=== PATIENT | male | born 2000 | race Two or more races ===

== ENCOUNTER 2019-06-14 12:55 | Emergency (ER) | payer OTHER, MEDICAID ==
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
== END 2019-06-14 14:05 ==
LOC: JP.ED 12:55
CPT/HCPCS: 99283

== ENCOUNTER 2021-01-26 00:48 | Emergency (ER) | payer BC, MEDICAID ==
[2021-01-26 01:08] VITALS: BP 146/81; PULSE 104
[2021-01-26] MEDS ORDERED: Ketorolac 30 MG/ML SDV IM ONE (01:25)
--- NOTE | 2021-01-26 01:29 | EDM.PDOC ---
ED HPI GENERAL MEDICAL PROBLEM - General Chief Complaint: General Stated Complaint: FELL HITTING FACE Time Seen by Provider: 01/26/21 01:17 Source of Information: Reports: Patient, Family, RN Notes Reviewed History Limitations: Reports: No Limitations - History of Present Illness INITIAL COMMENTS - FREE TEXT/NARRATIVE: 20-year-old gentleman presents emergency department today with bruising to the left side of his face he injured himself he states while he was running and try to go up the stairs he slipped and fell and hit with he is describing is a step predominantly on the cheekbone left side he does have significant bruising on the left side of the face as well as the eye describes no other pain no loss of consciousness no nausea or vomiting no other injury Left Face/Facial Pain Score (Numeric/FACES): 4 - Related Data Allergies Allergy/AdvReac Type Severity Reaction Status Date / Time No Known Allergies Allergy Verified 01/26/21 01:05 Home Meds: Home Meds Albuterol Sulfate [Albuterol Sulfate HFA] 2 puff INH Q4H PRN 02/06/13 [History] Montelukast [Singulair] 10 mg PO DAILY 02/06/13 [History] Past Medical History HEENT History: Reports: Allergic Rhinitis Respiratory History: Reports: Asthma Musculoskeletal History: Reports: Fracture Neurological History: Reports: Concussion - Infectious Disease History Infectious Disease History: Reports: RSV Social & Family History - Tobacco Use Tobacco Use Status *Q: Current Every Day Tobacco User Years of Tobacco use: 1 Packs/Tins Daily: 0.2 - Caffeine Use Caffeine Use: Reports: Soda Caffeine Use Comment: occassional use - Recreational Drug Use Recreational Drug Use: No ED ROS GENERAL - Review of Systems Review Of Systems: See Below Constitutional: Reports: No Symptoms HEENT: Reports: Other (Facial bruising) Respiratory: Reports: No Symptoms Cardiovascular: Reports: No Symptoms GI/Abdominal: Reports: No Symptoms ED EXAM, GENERAL - Physical Exam Exam: See Below Free Text/Narrative:: GCS of 15 airways open patent and clear lungs are clear to auscultation bilaterally cardiovascular demonstrates regular rate and rhythm S1-S2 Exam Limited By: No Limitations General Appearance: Alert, WD/WN, No Apparent Distress Eye Exam: Right Eye: Normal Inspection, Left Eye: Other (Subconjunctival hemorrhage), Bilateral Eye: EOMI, PERRL Ears: Normal External Exam, Normal Canal, Hearing Grossly Normal, Normal TMs Nose: Normal Inspection, Normal Mucosa, No Blood Throat/Mouth: Normal Inspection, Normal Lips, Normal Teeth, Normal Gums, Normal Oropharynx, Normal Voice, No Airway Compromise, Other (Laceration is appreciated inside the mucosal lining upper lip superficial) Head: Normocephalic, Facial Swelling, Facial Tenderness (Left cheekbone), Other (Superficial laceration is appreciated underneath the left eye) Neck: Normal Inspection, Supple, Non-Tender, Full Range of Motion Respiratory/Chest: No Respiratory Distress, Lungs Clear, Normal Breath Sounds, No Accessory Muscle Use, Chest Non-Tender Cardiovascular: Regular Rate, Rhythm, No Murmur Course - Vital Signs Last Recorded V/S: Last Vital Signs Temp 98.2 F 01/26/21 01:08 Pulse 104 H 01/26/21 01:08 Resp 16 01/26/21 01:08 BP 146/81 H 01/26/21 01:08 Pulse Ox 97 01/26/21 01:08 - Orders/Labs/Meds Meds: Medications Discontinued Medications Generic Name Dose Route Start Last Admin Trade Name Michael PRN Reason Stop Dose Admin Ketorolac Tromethamine 30 mg 01/26/21 01:25 01/26/21 01:31 Ketorolac 30 Mg/Ml Sdv IM 01/26/21 01:26 30 mg ONETIME ONE Administration Departure - Departure Time of Disposition: 03:03 Disposition: Home, Self-Care 01 Condition: Fair Clinical Impression: Ethmoid fracture Qualifiers: Encounter type: initial encounter Fracture type: closed Laterality: left Qualified Code(s): S02.19XA - Other fracture of base of skull, initial encounter for closed fracture - Discharge Information Instructions: Head Injury, Adult, [id number] Referrals: PCP,None [Primary Care Provider] - Forms: ED Department Discharge Additional Instructions: Continue to use ice to help reduce the swelling, try not to blow your nose or have any forceful movements such as sneezing if possible, use Toradol as needed for pain control. Please call to the [facility] clinic in the morning for an appointment time with Dr. Dooley from ear nose and throat for follow-up. Also recommend eye exam by your eye care provider within the next week. Call return to the emergency department worsening of symptoms Sepsis Event Note (ED) - Evaluation Sepsis Screening Result: No Definite Risk - Focused Exam Vital Signs: Vital Signs Temp Pulse Resp BP Pulse Ox 01/26/21 01:08 98.2 F 104 H 16 146/81 H 97 01/26/21 01:07 98.2 F 104 H 16 146/81 H 97 - Assessment/Plan Plan: Assessment Acuity = acute Site and laterality = left ethmoid bone fracture (lamina papyracea Etiology = trauma Manifestations = none Location of injury = Home Lab values = CT scan describes fracture above Plan Good relief with Toradol provided in the emergency department call discussed case with Dr. Arias ear nose [facility] on-call at [facility] recommend follow-up with ENT in 1 week a consultation has been set up also recommend evaluation by ophthalmic provider This note was dictated using [employer] voice recognition software please call with any questions on syntax or grammar.
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
== END 2021-01-26 03:12 | disposition home or self-care (01) ==
LOC: JP.ED 00:48
DX: S02.19XA Other fracture of base of skull, initial encounter for closed fracture (principal); S01.511A Laceration without foreign body of lip, initial encounter; J45.909 Unspecified asthma, uncomplicated; Z72.0 Tobacco use; W01.198A Fall on same level from slipping, tripping and stumbling with subsequent striking against other object, initial encounter; Y93.02 Activity, running
CPT/HCPCS: 70450; 70486; 96372; 99283; J1885

== ENCOUNTER 2021-10-09 15:19 | Emergency (ER) | payer MEDICAID ==
[2021-10-09 15:31] VITALS: BP 150/84; PULSE 94
[2021-10-09 17:14] LABS: CORONAVIRUS COVID-19 NAA NEGATIVE (NEGATIVE)
== END 2021-10-09 18:10 | disposition home or self-care (01) ==
LOC: JP.ED 15:19
DX: B34.9 Viral infection, unspecified (principal); J45.909 Unspecified asthma, uncomplicated; F17.210 Nicotine dependence, cigarettes, uncomplicated; Z79.899 Other long term (current) drug therapy; Z20.822 Contact with and (suspected) exposure to COVID-19
CPT/HCPCS: 0241U; 36415; 85025; 87081; 87880; 99281; 99283

== ENCOUNTER 2023-05-10 23:11 | Emergency (ER) | payer MEDICAID ==
[2023-05-10 23:21] VITALS: BP 143/93; PULSE 55
== END 2023-05-11 | disposition home or self-care (01) ==
LOC: JP.ED 23:11
DX: K04.7 Periapical abscess without sinus (principal); K02.9 Dental caries, unspecified; J45.909 Unspecified asthma, uncomplicated; F17.210 Nicotine dependence, cigarettes, uncomplicated; Z79.899 Other long term (current) drug therapy
CPT/HCPCS: 99282

== ENCOUNTER 2023-06-07 21:29 | Emergency (ER) | payer MEDICAID ==
[2023-06-07 22:07] VITALS: BP 136/56; PULSE 92
[2023-06-07 23:28] LABS: BASOPHILS ABSOLUTE AUTO 0.06 K/uL (0.00-0.10); BASOPHILS PERCENT AUTO 0.6 % (0.1-1.3); EOSINOPHILS ABSOLUTE AUTO 0.32 K/uL (0.00-0.40); EOSINOPHILS PERCENT AUTO 3.4 % (0.0-5.4); HEMATOCRIT 38.6 % (38.4-49.7); HEMOGLOBIN 12.9 g/dL (12.9-16.9); IMMATURE GRAN ABSOLUTE AUTO 0.12 K/uL (0.00-0.23); IMMATURE GRAN PERCENT AUTO 1.3 % (0.0-0.7); LYMPHOCYTES ABSOLUTE AUTO 2.74 K/uL (0.8-3.3); MEAN CORPUSCULAR HEMOGLOBIN 27.7 pg (31.6-35.5); MEAN CORPUSCULAR HGB CONC 33.4 g/dL (31.6-35.5); MONOCYTES ABSOLUTE AUTO 1.02 K/uL (0.20-0.90); MONOCYTES PERCENT AUTO 10.8 % (3.3-12.6); NEUTROPHILS ABSOLUTE AUTO 5.18 K/uL (1.0-7.6); NEUTROPHILS PERCENT AUTO 54.9 % (40.0-78.1); PLATELET COUNT,PLT 227 K/uL (130-375); RED BLOOD CELL COUNT 4.65 M/uL (4.14-5.76); WHITE BLOOD CELL COUNT,WBC 9.4 K/uL (3.2-11.0)
[2023-06-07 23:50] LABS: A/G RATIO 1.1 (1.2-2.2); ALANINE AMINOTRANSFERASE,ALT 102 U/L (12-78); ALBUMIN 3.5 g/dL (3.4-5.0); ALKALINE PHOSPHATASE 60 U/L (46-116); ANION GAP 9.8 mmol/L (5.0-14.0); ASPARTATE AMNIOTRANSFERASE,AST 60 U/L (15-37); BILIRUBIN TOTAL 0.2 mg/dL (0.2-1.0); BLOOD UREA NITROGEN,BUN 12 mg/dL (7-18); CALCIUM 8.5 mg/dL (8.5-10.1); CARBON DIOXIDE,CO2 28 mmol/L (21-32); CHLORIDE,CL 104 mmol/L (100-108); CREATINE KINASE,CK 481 U/L (39-308); EST CRCL DRUG DOSING (CG) 105.58 mL/min; ESTIMATED GFR 107 mL/min (>60); GLUCOSE RANDOM 83 mg/dL (74-106); POTASSIUM,K 3.8 mmol/L (3.6-5.2); PROTEIN TOTAL,TP 6.6 g/dL (6.4-8.2); SODIUM,NA 142 mmol/L (140-148)
== END 2023-06-08 00:58 | disposition home or self-care (01) ==
LOC: JP.ED 21:29
DX: M62.82 Rhabdomyolysis (principal); J45.909 Unspecified asthma, uncomplicated
CPT/HCPCS: 36415; 80053; 82550; 85025; 85379; 99283

== ENCOUNTER 2024-03-23 12:44 | Emergency (ER) | payer MEDICAID ==
[2024-03-23 13:24] VITALS: BP 135/67; PULSE 60
== END 2024-03-23 15:28 | disposition home or self-care (01) ==
LOC: JP.ED 12:44
DX: S00.33XA Contusion of nose, initial encounter (principal); J45.909 Unspecified asthma, uncomplicated; F17.210 Nicotine dependence, cigarettes, uncomplicated; Z79.51 Long term (current) use of inhaled steroids; Z79.899 Other long term (current) drug therapy; Y04.0XXA Assault by unarmed brawl or fight, initial encounter
CPT/HCPCS: 70486; 99283